=== PATIENT | female | born 1965 | race American Indian/Alaskan Native ===

== ENCOUNTER 2017-03-10 23:18 | Observation (INO) | payer BC ==
[2017-03-10 23:34] VITALS: BMI 26.6
[2017-03-11 01:09] LABS: BASOPHIL 0.8 % (0-2.0); EOSINOPHIL 2.7 % (0-4.5); MCH 28.4 pg (25.7-33.7); MCHC 33.9 g/dl (32.0-36.0); MEAN CELL VOLUME 83.6 fl (80-96); MEAN PLT VOLUME 9.2 fl (7.5-11.1); NEUTROPHILS 65.8 % (42.8-82.8); PLATELET COUNT 216 K/MM3 (134-434); RDW 15.1 % (11.6-15.6); WHITE BLOOD COUNT 8.1 K/mm3 (4.0-10.0)
--- NOTE | 2017-03-11 01:25 | PDOC ---
History of Present Illness - General Chief Complaint: Blood Pressure Problem Stated Complaint: BLOOD PRESSURE PROBLEM Time Seen by Provider: 03/11/17 00:01 History Source: Patient, Family Exam Limitations: No Limitations - History of Present Illness Initial Comments: 03/11/17 01:21 51yo Female patient with no significant past medical history presents to ED c/o elevated blood pressure, and chest tightness. Patient states this past Friday experiencing body pain, achy, tired and took Motrin for symptoms. She reports today having same symptoms but now blood pressure has been steady rising. Patient reports b/p reading around 140's/ 100's with chest tightness and left arm pain. LNMP: 1 week ago (Dona-menopausal). She denies CP, Abd pain, n/v/d, fever, cough, congestion, back pain, diff breathing, or any other complaints at this time. Timing/Duration: reports: getting worse. denies: constant, changing over time, intermittent, resolved prior to arrival, gone now, other Severity/Quality: reports: mild, tightness. denies: moderate, severe, aching, burning, dull, ingestion, pressure, sharp, stabbing, tearing, other Location: reports: other (Left Arm). denies: substernal, central, epigastric, shoulder, back, abdomen Chest Pain Radiation: reports: no radiation. denies: jaw, arms, neck, shoulders , back, sternal notch, epigastric, other Activities at Onset: denies: none, exertion, emotional upset, rest, sleep, no specific activity, eating, working, sexual intercourse, other Prior Chest Pain/Cardiac Workup: denies: No prior chest pain, No prior cardiac workup, Non-cardiac, Angina, Cardiac Cath, Cardiolye Scan, Echocardiography, Heart Attack, Pulmonary Embolism, Stress Test, Thallium Scan, Other Past History - Travel Traveled outside of the country in the last 30 days: No Close contact w/someone who was outside of country & ill: No - Past Medical History Allergies/Adverse Reactions: Allergies Allergy/AdvReac Type Severity Reaction Status Date / Time No Known Allergies Allergy Verified 03/10/17 23:32 Home Medications: Ambulatory Orders Acetaminophen W/ Codeine #3 [Tylenol # 3] 1 tab PO Q6H PRN #14 tablet 01/07/13 No Home Medications 0 dose .ROUTE UTDICT 01/07/13 - Suicide/Smoking/Psychosocial Hx Smoking Status: No Smoking History: Never smoked Have you smoked in the past 12 months: No Number of Cigarettes Smoked Daily: 0 Information on smoking cessation initiated: No Hx Alcohol Use: No Drug/Substance Use Hx: No Cardiac Specific PMH - Complaint Specific PMHX Abdominal Aortic Aneurysm: No Angina: No Cardiac Arrhythmia: No Cardiac Stent: No GERD: No Myocardial Infarction: No Pacemaker: No Pulmonary Embolus: No Valvular Heart Disease: No Peripheral Vascular Disease: No Review of Systems - Review of Systems Able to Perform ROS?: Yes Is the patient limited Frisian proficient: No Constitutional: No: Chills, Fever Cardiac (ROS): Yes: Chest Tightness All Other Systems: Reviewed and Negative *Physical Exam - Vital Signs Last Vital Signs Temp Pulse Resp BP Pulse Ox 98.0 F 99 H 17 133/81 97 03/10/17 23:32 03/11/17 02:38 03/11/17 02:38 03/11/17 02:38 03/11/17 02:38 - Physical Exam General Appearance: Yes: Nourished, Appropriately Dressed. No: Apparent Distress, Mild Distress, Moderate Distress, Severe Distress HEENT: positive: EOMI, NAVEED, Normal ENT Inspection, Normal Voice, Symmetrical, TMs Normal, Pharynx Normal. negative: Pharyngeal Erythema, Tonsillar Exudate, Tonsillar Erythema, Nasal Congestion, Rhinorrhea, Sinus Tenderness, TM Bulging, TM Dull, TM Erythema Neck: positive: Trachea midline, Normal Thyroid, Supple. negative: Decreased range of motion, Stridor, Lymphadenopathy (R), Lymphadenopathy (L), Rigidity, Tender lateral Respiratory/Chest: positive: Lungs Clear, Normal Breath Sounds. negative: Chest Tender, Respiratory Distress, Accessory Muscle Use, Labored Respiration, Rapid RR, Crackles, Rales, Rhonchi, Stridor, Wheezing Cardiovascular: positive: Regular Rhythm, Regular Rate Gastrointestinal/Abdominal: positive: Normal Bowel Sounds, Soft. negative: Tender, Distended, Guarding, Rebound, Tenderness Musculoskeletal: positive: Normal Inspection. negative: CVA Tenderness, CVA Tenderness (R), Decreased Range of Motion, Muscle Spasm, Vertebral Tenderness Extremity: positive: Normal Capillary Refill, Normal Inspection, Normal Range of Motion. negative: Pedal Edema, Swelling, Calf Tenderness, Erythema, Inflammation Integumentary: positive: Normal Color, Dry, Warm Neurologic: positive: convalescent sitter II-XII NML intact, Fully Oriented, Alert, Normal Mood/ Affect, Normal Response, Motor Strength 10/04 ED Treatment Course - LABORATORY CBC & Chemistry Diagram: 03/11/17 01:00 03/11/17 02:19 - ADDITIONAL ORDERS Additional order review: Laboratory Results 03/11/17 03/11/17 03/11/17 02:19 02:19 01:00 Sodium 142 Cancelled Potassium 4.1 Cancelled Chloride 107 Cancelled Carbon Dioxide 25 Cancelled Anion Gap 10 Cancelled BUN 8 Cancelled Creatinine 0.7 Cancelled Creat Clearance w eGFR > 60 Cancelled Random Glucose 97 Cancelled Calcium 8.9 Cancelled Total Bilirubin 0.5 Cancelled AST 23 Cancelled ALT 29 Cancelled Alkaline Phosphatase 63 Cancelled Creatine Kinase 247 H Cancelled Creatine Kinase Index 1.7 CK-MB (CK-2) 4.442 H Troponin I < 0.02 Cancelled Total Protein 7.5 Cancelled Albumin 4.1 Cancelled TSH 3.36 Cancelled Urine Color Straw Urine Appearance Slcloudy Urine pH 6.0 Urine Protein Negative Urine Glucose (UA) Negative Urine Ketones Negative Urine Blood Negative Urine Nitrite Negative Urine Bilirubin Negative Urine Urobilinogen Negative Urine HCG, Qual Negative 03/11/17 01:00 RBC 4.86 MCV 83.6 MCHC 33.9 RDW 15.1 MPV 9.2 Neutrophils % 65.8 Lymphocytes % 24.6 Monocytes % 6.1 Eosinophils % 2.7 Basophils % 0.8 - RADIOLOGY Radiology Studies Ordered: Category Date Time Status CHEST PA & LAT [RAD] Stat Radiology 03/11/17 00:08 Taken *DC/Admit/Observation/Transfer Diagnosis at time of Disposition: Chest pain Qualifiers: Chest pain type: unspecified Qualified Code(s): R07.9 - Chest pain, unspecified ; R07.9 - Chest pain, unspecified Hypertension Qualifiers: Hypertension type: unspecified Qualified Code(s): I10 - Essential (primary) hypertension; I10 - Essential (primary) hypertension; I10 - Essential (primary) hypertension - Discharge Dispostion Condition at time of disposition: Fair Admit: Yes
[2017-03-11 02:31] LABS: URINE APPEARANCE SLCLOUDY; URINE BILIRUBIN NEGATIVE (NEGATIVE); URINE BLOOD NEGATIVE (NEGATIVE); URINE COLOR STRAW; URINE GLUCOSE (UA) NEGATIVE (NEGATIVE); URINE KETONE NEGATIVE (NEGATIVE); URINE NITRITE NEGATIVE (NEGATIVE); URINE PROTEIN NEGATIVE (NEGATIVE); URINE UROBILINOGEN NEGATIVE mg/dL (0.2-1.0)
[2017-03-11 03:02] LABS: ALBUMIN 4.1 g/dl (3.4-5.0); ANION GAP 10 (8-16); CALCIUM 8.9 mg/dL (8.5-10.1); CO2 25 mmol/L (21-32); CREATININE 0.7 mg/dL (0.55-1.02); GLUCOSE,RANDOM 97 mg/dL (74-106); SGPT/ALT 29 U/L (12-78)
[2017-03-11 03:06] LABS: ALK PHOS 63 U/L (45-117); BILIRUBIN,TOTAL 0.5 mg/dL (0.2-1.0); CPK 247 IU/L (26-192); TOT PROT 7.5 g/dl (6.4-8.2); TROPONIN I < 0.02 ng/ml (0.00-0.05)
[2017-03-11 03:18] LABS: THYROID STIMULATING HORMONE 3.36 uIU/ml (0.358-3.74)
[2017-03-11 03:24] LABS: SGOT/AST 23 U/L (15-37)
[2017-03-11] MEDS ORDERED: ASPIRIN 81 MG CHEWABLE TABLETS PO ONE (03:57)
[2017-03-11] MEDS ORDERED: METOPROLOL TARTRATE 25 MG TABLET (FP) PO ONE (04:14)
[2017-03-11] MEDS ORDERED: ASPIRIN 325 MG TABLET ONE (04:30)
[2017-03-11] MEDS ORDERED: METOPROLOL TARTRATE 25 MG TABLET (FP) ONE (04:30)
--- NOTE | 2017-03-11 04:52 | HP ---
CHIEF COMPLAINT: HTN, chest discomfort PCP: Kenneth HISTORY OF PRESENT ILLNESS: This is a 51 year old female with no past medical history who presented to the ED with elevated blood pressure 130s/90-140s/100s and an odd sensation in her chest. She denies true pain or heaviness but sensation is not normal and it radiates into her left arm. She denies SOB, cough, abd pain, nausea, vomiting, diarrhea, constipation. She has been taking motrin for the past 3-4 days 3x daily for "flu like symptoms" which she further describes as fatigue and body aches. ER course was notable for: (1) CK 247, CK-MB 4.442, Trop <0.02 (2) ECG with nonspecific T wave changes (3) Recent Travel: [place] in December PAST MEDICAL HISTORY: none PAST SURGICAL HISTORY: none Social History: Smoking: pt denies Alcohol: occ on special occasions such as weddings Drugs: pt denies Family History: Mother age 65 due to heart problems, CVA at age 42 father age 55, [place] 4 siblings all alive and well 2 children alive and well Allergies No Known Allergies Allergy (Verified 03/10/17 23:32) HOME MEDICATIONS: 3 Medication Instructions Recorded No Home Medications 0 dose .ROUTE UTDICT 01/07/13 REVIEW OF SYSTEMS CONSTITUTIONAL: Present: malaise Absent: fever, chills, diaphoresis, generalized weakness, loss of appetite, weight change HEENT: Absent: rhinorrhea, nasal congestion, throat pain, throat swelling, difficulty swallowing, mouth swelling, ear pain, eye pain, visual changes CARDIOVASCULAR: Present: chest discomfort, HTN Absent: chest pain, syncope, palpitations, irregular heart rate, lightheadedness , peripheral edema RESPIRATORY: Absent: cough, shortness of breath, dyspnea with exertion, orthopnea, wheezing, stridor, hemoptysis GASTROINTESTINAL: Absent: abdominal pain, abdominal distension, nausea, vomiting, diarrhea, constipation, melena, hematochezia GENITOURINARY: Absent: dysuria, frequency, urgency, hesitancy, hematuria, flank pain, genital pain MUSCULOSKELETAL: Absent: myalgia, arthralgia, joint swelling, back pain, neck pain SKIN: Absent: rash, itching, pallor HEMATOLOGIC/IMMUNOLOGIC: Absent: easy bleeding, easy bruising, lymphadenopathy, frequent infections ENDOCRINE: Absent: unexplained weight gain, unexplained weight loss, heat intolerance, cold intolerance NEUROLOGIC: Absent: headache, focal weakness or paresthesias, dizziness, unsteady gait, seizure, mental status changes, bladder or bowel incontinence PSYCHIATRIC: Absent: anxiety, depression, suicidal or homicidal ideation, hallucinations. PHYSICAL EXAMINATION Vital Signs - 24 hr 3 03/10/17 03/11/17 03/11/17 23:32 02:38 04:33 Temperature 98.0 F Pulse Rate 78 Pulse Rate [ 99 H 82 Apical] Respiratory 14 17 Rate Blood Pressure 144/95 Blood Pressure 133/81 126/79 [Left Arm] O2 Sat by Pulse 100 97 Oximetry (%) GENERAL: Awake, alert, and fully oriented, in no acute distress. HEAD: Normal with no signs of trauma. EYES: Pupils equal, round and reactive to light, extraocular movements intact, sclera anicteric, conjunctiva clear. No lid lag. EARS, NOSE, THROAT: Ears normal, nares patent, oropharynx clear without exudates. Moist mucous membranes. NECK: Normal range of motion, supple without lymphadenopathy, JVD, or masses. LUNGS: Breath sounds equal, clear to auscultation bilaterally. No wheezes, and no crackles. No accessory muscle use. HEART: Regular rate and rhythm, normal S1 and S2 without murmur, rub or gallop. ABDOMEN: Soft, nontender, not distended, normoactive bowel sounds, no guarding, no rebound, no masses. No hepatomegaly or splenomegaly. MUSCULOSKELETAL: Normal range of motion at all joints. No bony deformities or tenderness. No CVA tenderness. UPPER EXTREMITIES: 2+ pulses, warm, well-perfused. No cyanosis. No clubbing. No peripheral edema. LOWER EXTREMITIES: 2+ pulses, warm, well-perfused. No calf tenderness. No peripheral edema. NEUROLOGICAL: Cranial nerves II-XII intact. Normal speech. Normal gait. PSYCHIATRIC: Cooperative. Good eye contact. Appropriate mood and affect. SKIN: Warm, dry, normal turgor, no rashes or lesions noted, normal capillary refill. Laboratory Results - last 24 hr 3 03/11/17 03/11/17 03/11/17 01:00 01:00 02:19 WBC 8.1 RBC 4.86 Hgb 13.8 Hct 40.6 MCV 83.6 MCH 28.4 MCHC 33.9 RDW 15.1 Plt Count 216 MPV 9.2 Neutrophils % 65.8 Lymphocytes % 24.6 Monocytes % 6.1 Eosinophils % 2.7 Basophils % 0.8 Sodium Cancelled 142 Potassium Cancelled 4.1 Chloride Cancelled 107 Carbon Dioxide Cancelled 25 Anion Gap Cancelled 10 BUN Cancelled 8 Creatinine Cancelled 0.7 Creat Clearance w eGFR Cancelled > 60 Random Glucose Cancelled 97 Calcium Cancelled 8.9 Total Bilirubin Cancelled 0.5 AST Cancelled 23 ALT Cancelled 29 Alkaline Phosphatase Cancelled 63 Creatine Kinase Cancelled 247 H Creatine Kinase Index 1.7 CK-MB (CK-2) 4.442 H Troponin I Cancelled < 0.02 Total Protein Cancelled 7.5 Albumin Cancelled 4.1 TSH Cancelled 3.36 Urine Color Urine Appearance Urine pH Urine Protein Urine Glucose (UA) Urine Ketones Urine Blood Urine Nitrite Urine Bilirubin Urine Urobilinogen Urine HCG, Qual 3 Urine Color Straw 03/11/17 02:19 Urine Appearance Slcloudy 03/11/17 02:19 Urine pH 6.0 (5.0-8.0) 03/11/17 02:19 Urine Protein Negative (NEGATIVE) 03/11/17 02:19 Urine Glucose (UA) Negative (NEGATIVE) 03/11/17 02:19 Urine Ketones Negative (NEGATIVE) 03/11/17 02:19 Urine Blood Negative (NEGATIVE) 03/11/17 02:19 Urine Nitrite Negative (NEGATIVE) 03/11/17 02:19 Urine Bilirubin Negative (NEGATIVE) 03/11/17 02:19 ECG NSR, vent rate 90, QTC 477 Nonspecific T wave abnormality: inverted leads III, aVF, flattened leads II,v3- v6 Radiology Results CXR no obvious infiltrates or effusions, official read pending ASSESSMENT/PLAN: 51yF with no PMH presented to ED with elevated BP and odd sensation in chest radiating to left arm, general malaise. She is being admitted for further cardiac workup. Chest discomfort - ASA and metoprolol given in ED - cardiology consult - echocardiogram - likely will need stress test, inpatient vs outpatient - cardiac monitoring - trend troponins x 3 HTN - BP improved with resting. s/p one dose metoprolol in ED DVT PPX - deferred at this time as anticipated LOS<48h Dispo: Pt currently requires inpatient observation for further evaluation of her emergent condition. Visit type - Emergency Visit Emergency Visit: Yes ED Registration Date: 03/10/17 Care time: The patient presented to the Emergency Department on the above date and was hospitalized for further evaluation of their emergent condition. - New Patient This patient is new to me today: Yes Date on this admission: 03/11/17 - Critical Care Critical Care patient: No
[2017-03-11 08:43] LABS: BASOPHIL 0.6 % (0-2.0); EOSINOPHIL 1.6 % (0-4.5); MCH 27.8 pg (25.7-33.7); MCHC 33.4 g/dl (32.0-36.0); MEAN CELL VOLUME 83.3 fl (80-96); MEAN PLT VOLUME 9.3 fl (7.5-11.1); NEUTROPHILS 70.3 % (42.8-82.8); PLATELET COUNT 218 K/MM3 (134-434); RDW 14.6 % (11.6-15.6); WHITE BLOOD COUNT 8.6 K/mm3 (4.0-10.0)
[2017-03-11 09:11] LABS: ANION GAP 8 (8-16); CALCIUM 9.1 mg/dL (8.5-10.1); CHOLESTEROL 195 mg/dL (50-200); CO2 26 mmol/L (21-32); CREATININE 0.7 mg/dL (0.55-1.02); GLUCOSE,RANDOM 91 mg/dL (74-106); MAGNESIUM 2.2 mg/dL (1.8-2.4); PHOSPHOROUS 3.9 mg/dL (2.5-4.9)
[2017-03-11 09:16] LABS: URINE LEUK ESTERASE 2+ (NEGATIVE)
[2017-03-11 09:16] LABS: CPK 188 IU/L (26-192); TROPONIN I < 0.02 ng/ml (0.00-0.05)
[2017-03-11 09:18] LABS: URINE BACTERIA MODERATE /hpf (NEGATIVE); URINE RBC 0-3 /hpf (0-3)
[2017-03-11 15:23] LABS: URINE APPEARANCE SLCLOUDY; URINE BILIRUBIN NEGATIVE (NEGATIVE); URINE BLOOD NEGATIVE (NEGATIVE); URINE COLOR YELLOW; URINE GLUCOSE (UA) NEGATIVE (NEGATIVE); URINE KETONE NEGATIVE (NEGATIVE); URINE NITRITE NEGATIVE (NEGATIVE); URINE UROBILINOGEN NEGATIVE mg/dL (0.2-1.0)
[2017-03-11 15:26] LABS: URINE PROTEIN 1+ (NEGATIVE)
[2017-03-11 15:28] LABS: URINE BACTERIA RARE /hpf (NONE SEEN); URINE MUCUS RARE; URINE RBC 2 /hpf (0-3); URINE WBC 3 /hpf (3-5)
[2017-03-11 15:54] LABS: CPK 168 IU/L (26-192); TROPONIN I < 0.02 ng/ml (0.00-0.05)
--- NOTE | 2017-03-11 16:54 | CON.CARD ---
Consult Consult Specialty:: Cardiology Referred by:: Hospitalist Reason for Consultation:: Cardiac evaluation - History of Present Illness Chief Complaint: Chest pain History of Present Illness: Patient is a 51 year old female of [place] with no significant medical history who presents with elevated blood pressure and chest discomfort. SHe denies shortness of breath or palpitations. She denies paroxysmal nocturnal dyspnea or orthopnea. She denies fever or chills. He denies headache or lightheadedness. She denies any prior syncopal episodes. Cardiology consultation was called for further evaluation. - History Source History Provided By: Patient, Family Member, Medical Record Limitations to Obtaining History: No Limitations - Past Medical History Cardio/Vascular: Yes: HTN. No: Hyperlipdemia Endocrine: No: Diabetes Mellitus - Alcohol/Substance Use Hx Alcohol Use: No - Smoking History Smoking history: Never smoked Have you smoked in the past 12 months: No Aproximately how many cigarettes per day: 0 Home Medications - Allergies Allergies/Adverse Reactions: Allergies Allergy/AdvReac Type Severity Reaction Status Date / Time No Known Allergies Allergy Verified 03/10/17 23:32 - Home Medications Home Medications: Ambulatory Orders Acetaminophen W/ Codeine #3 [Tylenol # 3] 1 tab PO Q6H PRN #14 tablet 01/07/13 No Home Medications 0 dose .ROUTE UTDICT 01/07/13 Review of Systems - Review of Systems Constitutional: denies: Chills, Fever Cardiovascular: reports: Chest Pain. denies: Palpitations, Shortness of Breath Respiratory: denies: Cough, Hemoptysis, Orthopnea, PND, SOB, SOB on Exertion Gastrointestinal: denies: Abdominal Pain, Constipation, Diarrhea, Melena, Nausea , Rectal Bleeding, Vomiting Musculoskeletal: denies: Joint Pain Neurological: denies: Dizziness, Headache, Seizure, Syncope, Unsteady Gait, Weakness Vital Signs: Vital Signs Temperature 99.1 F 03/11/17 15:30 Pulse Rate 94 H 03/11/17 15:30 Respiratory Rate 16 03/11/17 15:30 Blood Pressure 116/68 03/11/17 15:30 O2 Sat by Pulse Oximetry (%) 99 03/11/17 08:00 Neck: Yes: Supple Respiratory: Yes: Regular, CTA Bilaterally Gastrointestinal: Yes: Normal Bowel Sounds, Soft. No: Tenderness Cardiovascular: Yes: Regular Rate and Rhythm JVD: No Carotid Bruit: No PMI: Non-Displaced Heart Sounds: Yes: S1, S2. No: Gallop Murmur: No: Systolic Murmur, Diastolic Murmur Edema: No - Other Data Labs, Other Data: CBC, BMP 03/11/17 08:10 03/11/17 08:10 Troponin, BNP 03/11/17 03/11/17 08:10 14:40 Troponin I < 0.02 < 0.02 Troponin, BNP 03/11/17 03/11/17 08:10 14:40 Troponin I < 0.02 < 0.02 Problem List - Problems (1) Chest pain Code(s): R07.9 - CHEST PAIN, UNSPECIFIED Qualifiers: Chest pain type: unspecified Qualified Code(s): R07.9 - Chest pain, unspecified; R07.9 - Chest pain, unspecified (2) Hypertension Code(s): I10 - ESSENTIAL (PRIMARY) HYPERTENSION Qualifiers: Hypertension type: unspecified Qualified Code(s): I10 - Essential ( primary) hypertension; I10 - Essential (primary) hypertension; I10 - Essential ( primary) hypertension Assessment/Plan 1. Chest pain syndrome - atypical 2. Episode of hypertension PLAN: 1. Patient was already scheduled for transthoracic echocardiography and nuclear myocardial perfusion imaging by the hospitalist service. Will follow result 2. Patient was given Metoprolol and ASA in the ER. Will decide whether to continue with daily dose pending above test results 3. Fasting lipid panel was reviewed. No need to start statin at this time Further plans are to follow Goldy Villaseñor MD
--- NOTE | 2017-03-11 17:17 | DS ---
Physical Exam: SUBJECTIVE: Patient seen and examined OBJECTIVE: Vital Signs Period Temp Pulse Resp BP Sys/Saxena Pulse Ox Last 24 Hr 98 F-99.1 F 65-94 16-20 112-126/68-79 99 PHYSICAL EXAM GENERAL: The patient is awake, alert, and fully oriented, in no acute distress. HEAD: Normal with no signs of trauma. EYES: PERRL, extraocular movements intact, sclera anicteric, conjunctiva clear. ENT: Ears normal, nares patent, oropharynx clear without exudates, moist mucous membranes. NECK: Trachea midline, full range of motion, supple. LUNGS: Breath sounds equal, clear to auscultation bilaterally, no wheezes, no crackles, no accessory muscle use. HEART: Regular rate and rhythm, S1, S2 without murmur, rub or gallop. ABDOMEN: Soft, nontender, nondistended, normoactive bowel sounds, no guarding, no rebound, no hepatosplenomegaly, no masses. EXTREMITIES: 2+ pulses, warm, well-perfused, no edema. NEUROLOGICAL: Cranial nerves II through XII grossly intact. Normal speech, gait not observed. PSYCH: Normal mood, normal affect. SKIN: Warm, dry, normal turgor, no rashes or lesions noted. LABS Laboratory Results - last 24 hr 03/11/17 03/11/17 03/11/17 08:10 08:10 08:10 WBC 8.6 RBC 4.80 Hgb 13.4 Hct 40.0 MCV 83.3 MCH 27.8 MCHC 33.4 RDW 14.6 Plt Count 218 MPV 9.3 Neutrophils % 70.3 Lymphocytes % 21.4 Monocytes % 6.1 Eosinophils % 1.6 Basophils % 0.6 Sodium 141 Potassium 4.1 Chloride 107 Carbon Dioxide 26 Anion Gap 8 BUN 6 L D Creatinine 0.7 Random Glucose 91 Calcium 9.1 Phosphorus 3.9 Magnesium 2.2 Creatine Kinase 188 Creatine Kinase Index 1.6 CK-MB (CK-2) 3.014 Troponin I < 0.02 Triglycerides 106 Cancelled Cholesterol 195 Cancelled Total LDL Cholesterol 119 H Cancelled HDL Cholesterol 58 Cancelled Urine Color Urine Appearance Urine pH Urine Protein Urine Glucose (UA) Urine Ketones Urine Blood Urine Nitrite Urine Bilirubin Urine Urobilinogen Urine RBC Urine WBC Ur Epithelial Cells Urine Bacteria Urine Mucus 03/11/17 03/11/17 14:40 15:00 WBC RBC Hgb Hct MCV MCH MCHC RDW Plt Count MPV Neutrophils % Lymphocytes % Monocytes % Eosinophils % Basophils % Sodium Potassium Chloride Carbon Dioxide Anion Gap BUN Creatinine Random Glucose Calcium Phosphorus Magnesium Creatine Kinase 168 Creatine Kinase Index 1.4 CK-MB (CK-2) 2.509 Troponin I < 0.02 Triglycerides Cholesterol Total LDL Cholesterol HDL Cholesterol Urine Color Yellow Urine Appearance Slcloudy Urine pH 6.0 Urine Protein 1+ H Urine Glucose (UA) Negative Urine Ketones Negative Urine Blood Negative Urine Nitrite Negative Urine Bilirubin Negative Urine Urobilinogen Negative Urine RBC 2 Urine WBC 3 Ur Epithelial Cells Rare Urine Bacteria Rare Urine Mucus Rare HOSPITAL COURSE: Date of Admission:03/11/17 Date of Discharge: 03/11/17 Discharge Summary Reason For Visit: CHEST PAIN HYPERTENSION Current Active Problems Chest pain (Acute) Hypertension (Acute) Condition: Stable - Instructions Diet, Activity, Other Instructions: Please return to the ED for any new, persistent, or worsening symptoms. Follow up with pcp in 1 week Follow up with Dr. Villaseñor in 2 weeks Referrals: Goldy Villaseñor MD [Staff Physician] - Disposition: HOME - Home Medications Comprehensive Discharge Medication List: Ambulatory Orders Acetaminophen W/ Codeine #3 [Tylenol # 3] 1 tab PO Q6H PRN #14 tablet 01/07/13 No Home Medications 0 dose .ROUTE UTDICT 01/07/13
[2017-03-11 18:35] VITALS: BP 114/68; PULSE 73; TEMP 98
[2017-03-11 19:19] LABS: URINE LEUK ESTERASE Negative (NEGATIVE)
--- NOTE | 2017-03-11 22:15 | EKG ---
Test Reason : Blood Pressure : / mmHG Vent. Rate : 090 BPM Atrial Rate : 090 BPM P-R Int : 136 ms QRS Dur : 082 ms QT Int : 390 ms P-R-T Axes : 048 001 -34 degrees QTc Int : 477 ms NORMAL SINUS RHYTHM ATRIAL ABNORMALITY ST-T ABNORMALITIES PROLONGED QT ABNORMAL ECG REPEAT EKG IF CLINICALLY INDICATED Confirmed by LILIANE SANDOVAL MD ([id number] on 03/11/2017 10:14:56 PM Referred By: Confirmed By:LILIANE SANDOVAL MD
== END 2017-03-11 18:39 | disposition home or self-care (01) ==
LOC: JER 23:18 → JERBED 03-11 04:15 → UNDOADMOB 03-11 04:27 → JERBED 03-11 04:27 → J4W 03-11 06:27
PROVIDERS: ADMIT Internal Medicine; ATTEND Nurse Practitioner Acute Care
DX: R07.9 Chest pain, unspecified (principal); I10 Essential (primary) hypertension
CPT/HCPCS: 36415; 71020-TC; 78452-TC; 80048; 80053; 80061; 81003; 81015; 82550; 82553; 83721; 83735; 84100; 84443; 84484; 84703; 85025; 93005; 93010; 93017; 93306-TC; 99283-25; A9502; G0378